=== PATIENT | female | born 1995 | race Caucasian/White ===

== ENCOUNTER 2023-04-23 16:07 | Emergency (ER) | payer BC ==
[~2023-04-23] VITALS: Ht 157.5 cm; Wt 103.9 kg
[2023-04-23 16:10] VITALS: BP_SYST 155; PULSE 92; RESP 19; TEMP 97.1; O2SAT 97
[2023-04-23 17:03] VITALS: O2SAT 98
[2023-04-23 17:04] VITALS: BP_SYST 150; PULSE 88; RESP 17; TEMP 98
== END 2023-04-23 17:14 | disposition home or self-care (01) ==
LOC: SED 16:07
DX: S09.90XA Unspecified injury of head, initial encounter (principal); Z88.1 Allergy status to other antibiotic agents; W22.8XXA Striking against or struck by other objects, initial encounter; Y93.89 Activity, other specified; Y92.89 Other specified places as the place of occurrence of the external cause; Y99.8 Other external cause status
CPT/HCPCS: 99282